=== PATIENT | female | born 1990 | race Caucasian/White ===

== ENCOUNTER 2016-07-01 15:00 | Outpatient (CLI) | payer MEDICAID ==
[2016-07-01] MEDS ORDERED: LACTATED RINGERS 500 ML IV ONE (15:25)
[2016-07-01] MEDS ORDERED: LACTATED RINGERS 1,000 ML ONE (18:28)
[2016-07-01 19:11] VITALS: BP 107/58
[2016-07-01] MEDS ORDERED: BRETHINE IVP ONE (19:35)
[2016-07-01] MEDS ORDERED: BRETHINE SUB-Q ONE (19:45)
--- NOTE | 2016-07-02 08:05 | Ultrasound Report ---
LIMITED OB ULTRASOUND: Gestation: rojas Position: transverse, head to maternal right MACKENZIE = 14.6 cm Heart Rate: 121 BPM Cervical length: 4.0 cm (Normal > 3 cm) Estimated gestational age is 33 weeks one day.
== END 2016-07-01 20:34 | disposition home or self-care (01) ==
LOC: TRG 15:00
PROVIDERS: ATTEND Obstetrics & Gynecology
DX: O32.2XX0 Maternal care for transverse and oblique lie, not applicable or unspecified (principal); O47.03 False labor before 37 completed weeks of gestation, third trimester; Z3A.34 34 weeks gestation of pregnancy
CPT/HCPCS: 59025; 76815; 96360; 96361; 96372; J3105; J7120

== ENCOUNTER 2020-10-05 13:17 | Inpatient (IN) | payer BC, MEDICAID ==
[2020-10-05] MEDS ORDERED: METHYLERGONOVINE MALEATE 0.2 MG/ML VIAL IM PRN (13:34)
[2020-10-05] MEDS ORDERED: BUTORPHANOL 2 MG/1 ML INJ IV PRN (13:34)
[2020-10-05] MEDS ORDERED: LIDOCAINE (2%) 20 MG/1 ML VIAL 20 ML MDV INFILTRATI ONE (13:34)
[2020-10-05] MEDS ORDERED: ACETAMINOPHEN 325 MG TAB PO PRN ×2 (13:34→17:00)
[2020-10-05] MEDS ORDERED: fentaNYL 100 MCG/2 ML INJ IV PRN (13:34)
[2020-10-05] MEDS ORDERED: miSOPROStol 200 MCG TAB PR PRN (13:34)
[2020-10-05] MEDS ORDERED: CARBOPROST TROMETHAMINE 250 MCG/1 ML INJ IM PRN (13:34)
[2020-10-05] MEDS ORDERED: OXYTOCIN 10 UNIT/1 ML INJ IM PRN (13:34)
[2020-10-05] MEDS ORDERED: ePHEDrine SULFATE 50 MG/1 ML INJ IV PRN ×2 (13:34→15:00)
[2020-10-05] MEDS ORDERED: MINERAL OIL 30 ML ORAL LIQD PO PRN (13:34)
[2020-10-05] MEDS ORDERED: LOPERAMIDE 2 MG CAP PO PRN (13:34)
[2020-10-05] MEDS ORDERED: TERBUTALINE 1 MG/1 ML INJ SUB-Q PRN (13:34)
[2020-10-05] MEDS: LACTATED RINGERS 1,000 ML IV SCH ×2 (13:49→14:30)
--- NOTE | 2020-10-05 13:53 | History and Physical Report ---
History of Present Illness Date of examination: 10/05/20 Date of admission: 10/05/2020 Chief complaint: Contractions History of present illness: 30 year old presents to L&D with regular contractions and advanced cervical dilation. Patient received care at [facility] and records are available. EDC . significant for late care and LGA. labs are as follows: O+, antibody screen negative, hepatitis B surface antigen negative, hepatitis C antibody negative, HIV negative, RPR nonreactive, rubella immune, varicella immune, GBS negative, 1 hour sugar test 155 (normal 3 hour OGTT), trichomonas negative, unable to locate GC/CT result on patient's records. 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 denies: smoking, alcohol abuse, prescription drug abuse, IV drug use - Obstetrical History Expected Date of Delivery: 10/07/20 Actual Gestation: 39 Week(s) 5 Day(s) : 5 Para: 4 Hx # Term Pregnancies: 4 Number of Pregnancies: 0 Spontaneous Abortions: 0 Induced : 0 Number of Living Children: 4 Medications and Allergies Allergies Allergy/AdvReac Type Severity Reaction Status Date / Time No Known Allergies Allergy Unverified 07/07/18 10:26 Home Medications Medication Instructions Recorded Confirmed Last Taken Type Ferrous Sulfate [Feosol 325 MG tab] 325 mg PO BID #60 tablet 07/08/18 Unknown Rx Active Meds: Active Medications Acetaminophen (Acetaminophen 325 Mg Tab) 650 mg PO Q4H PRN PRN Reason: Pain, Mild (1-3) Butorphanol Tartrate (Butorphanol 2 Mg/1 Ml Inj) 1 mg IV Q2H PRN PRN Reason: Pain, Moderate(4-6) LABOR PAIN Carboprost Tromethamine (Carboprost Tromethamine 250 Mcg/1 Ml Inj) 250 mcg IM ONCE PRN PRN Reason: Uterine Bleeding Ephedrine Sulfate (Ephedrine Sulfate 50 Mg/1 Ml Inj) 10 mg IV Q2M PRN PRN Reason: Hypotension Fentanyl (Fentanyl 100 Mcg/2 Ml Inj) 100 mcg IV Q2H PRN PRN Reason: Pain,Severe (7-10) LABOR PAIN Oxytocin/Sodium Chloride (Pitocin/Ns 30 Unit/500ml) 30 units in 500 mls @ 2 mls/hr IV TITR JESSICA; Protocol Lactated Ringer's (Lactated Ringers) 1,000 mls @ 125 mls/hr IV DIRECT JESSICA Last Admin: 10/05/20 13:49 Dose: 125 mls/hr Documented by: Oxytocin/Sodium Chloride (Pitocin/Ns 30 Unit/500ml) 30 units in 500 mls @ 40 mls/hr IV TITR JESSICA; Protocol Ampicillin Sodium (Ampicillin/Ns 2 Gm/100 Ml) 2 gm in 100 mls @ 100 mls/hr IV ONCE ONE; Protocol Stop: 10/05/20 14:59 Loperamide HCl (Loperamide 2 Mg Cap) 2 mg PO ONCE PRN PRN Reason: give with Hemabate Methylergonovine Maleate (Methylergonovine Maleate 0.2 Mg/Ml Vial) 0.2 mg IM ONCE PRN PRN Reason: Uterine Bleeding Mineral Oil (Mineral Oil 30 Ml Oral Liqd) 30 ml PO QHS PRN PRN Reason: Constipation Misoprostol (Misoprostol 200 Mcg Tab) 800 mcg MA ONCE PRN PRN Reason: Uterine Bleeding Oxytocin (Oxytocin 10 Unit/1 Ml Inj) 10 unit IM ONCE PRN PRN Reason: Uterine Bleeding Terbutaline Sulfate (Terbutaline 1 Mg/1 Ml Inj) 0.25 mg SUB-Q ONCE PRN PRN Reason: Hyperstimulation/Hypertonicity Review of Systems All systems: negative (contractions) - Vital Signs Vital signs: Vital Signs Pulse Ox 93 10/05/20 13:42 Temp Pulse Resp BP Pulse Ox 76 128/72 98 10/05/20 13:47 10/05/20 13:43 10/05/20 13:47 - Physical Exam Abdomen: Positive: normal appearance, soft. Negative: distention, tenderness, guarding, rigidity Genitourinary (Female): Positive: normal external genitalia, normal perenium. Negative: perineal/vulvar lesions Vagina: Positive: normal moisture Uterus: Positive: enlarged. Negative: tender Anus/Rectum: Positive: normal perianal skin Extremities: Negative: tenderness - Obstetrical FHR: category 1 Uterine Contraction Monitor Mode: External Cervical Dilatation: 8 Cervical Effacement Percentage: 90 (BBOW) station: -1 Uterine Contraction Pattern: Regular Uterine Contraction Intensity: Moderate Results All other labs normal. Assessment and Plan A: at 39 weeks, 5 days gestation. Active labor. GBS negative. P: Admit. EFM. Anticipate vaginal . Request remaineder of records from [place].
[2020-10-05 13:57] LABS: Hematocrit 37.2 % (30.3-42.9); Hemoglobin 12.8 gm/dl (10.1-14.3); Mean Corpuscular HGB Conc 34 % (30-34); Mean Corpuscular Volume 81 fl (79-97); Platelet Count 223 K/mm3 (140-440); Red Blood Count 4.62 M/mm3 (3.65-5.03)
[2020-10-05] MEDS ORDERED: AMPICILLIN/NS 2 GM/100 ML 2 GM/100 ML BAG IV ONE (14:00)
[2020-10-05] MEDS ORDERED: OXYTOCIN DRIP 30 UNITS/500 ML BAG IV SCH (14:00)
[2020-10-05 14:04] LABS: Red Cell Distribution Width 21.8 % (13.2-15.2)
--- NOTE | 2020-10-05 14:58 | Anesthesia Consultation ---
Anesthesia Consult and Med Hx Date of service: 10/05/20 - Airway Anesthetic Teeth Evaluation: Good ROM Head & Neck: Adequate Mental/Hyoid Distance: Adequate Mallampati Class: Class II Intubation Access Assessment: Good - Pulmonary Exam CTA: Yes - Cardiac Exam Cardiac Exam: RRR - Pre-Operative Health Status ASA Pre-Surgery Classification: ASA1 Proposed Anesthetic Plan: Epidural - Pulmonary Hx Asthma: No COPD: No Hx Pneumonia: No - Cardiovascular System Hx Hypertension: No - Central Nervous System Hx Seizures: No Hx Psychiatric Problems: No - Endocrine Hx Renal Disease: No Hx End Stage Renal Disease: No Hx Hypothyroidism: No Hx Hyperthyroidism: No - Hematic Hx Anemia: No Hx Sickle Cell Disease: No - Other Systems Hx Alcohol Use: No
[2020-10-05] MEDS ORDERED: NALOXONE 2 MG/2 ML INJ IV PRN (15:00)
--- NOTE | 2020-10-05 15:00 | Progress Note ---
Regional Anesthesia Block - Regional Anesthesia Block Start Time: 14:45 Stop Time: 14:50 Performed By:: ESTELA MEEK Procedure: Patient is requesting epidural for labor and pain. H&P, labs were reviewed. Patient IDed, H&P reviewed, all questions and concerns were answered, and consent was signed. Timeout was performed at bedside. Patient in sitting position. Sterile prep and drape was performed. 3ml of 1% lidocaine skin wheal at L[3]- L [4]. 18-gauge Tuohy epidural needle was advanced to loss of resistance with air technique cm. Negative CSF negative blood. Epidural catheter advanced to [15] centimeters. [negative] Aspiration [negative] test dose. Sterile dressing applied. Patient tolerated procedure.
[2020-10-05] MEDS ORDERED: fentaNYL-BUPIV 2 MCG/ML-0.125% 200 MCG/100 ML BAG EPIDURAL SCH (15:06)
[2020-10-05] MEDS: OXYTOCIN DRIP 30 UNITS/500 ML BAG IV SCH ×2 (15:39→16:16)
--- NOTE | 2020-10-05 16:35 | Procedure Note ---
OB Delivery Note - Delivery Date of Delivery: 10/05/20 - Vaginal Delivery presentation: vertex Delivery position: OA Intrapartum events: hemorrhage, shoulder dystocia Delivery induction: none Delivery monitor: external FHT, external uterine Route of delivery: Delivery placenta: spontaneous Delivery cord: 3 umbilical vessels Episiotomy: none Delivery laceration: 1st degree Delivery repair: vicryl Anesthesia: epidural Delivery comments: Spontaneous vaginal delivery at 15:45 of liveborn female infant weighing 3.45 kg over first degree perineal laceration with apgars of 8/9. No nuchal cord. Right anterior shoulder dystocia resolved with McRobert's maneuver, delivery of posterior arm, rotation of baby, and delivery of anterior arm. Head to body interval 1 minute. Baby placed skin to skin with mom immediately after delivery. Spontaneous cry and respirations. Baby suctioned with bulb syringe, dried with warm towels, and stimulated. 3 vessel cord double clamped and cut (delayed cord clamping) and baby taken to radiant warmer for further suctioning and evaluation. Spontaneous delivery of intact placenta and membranes by montgomery mechanism at 15:54. Uterine atony and hemorrhage noted. Pitocin to IV fluids after delivery of placenta. Cytotec 800 mcg given rectally. IM Methergine and Hemabate given. Bimanual uterine massage performed. Straight cath done to empty bladder. Fundus firmed and bleeding slowed to normal. EBL 500 cc. Stat H&H and pelvic US to check for placental fragments or accessory lobe ordered. Small superficial first degree perineal laceration repaired with 3-0 vicryl. No other lacerations noted. Sponge count correct. Vaginal sweep negative. Mother and baby stable in birthing room.
[2020-10-05] MEDS ORDERED: WITCH HAZEL/ GLYCERIN PAD TP PRN (17:00)
[2020-10-05] MEDS ORDERED: LANOLIN/ZINC/DIMETHICONE (LANSINOH) 7 GM TP PRN (17:00)
[2020-10-05] MEDS ORDERED: HYDROcodone/ACETAMINOPHEN 5-325 MG TAB PO PRN (17:00)
[2020-10-05] MEDS ORDERED: HYDROCORTISONE 25 MG RECTAL SUPP PR PRN (17:00)
[2020-10-05] MEDS ORDERED: ONDANSETRON 4 MG/2 ML INJ IV PRN (17:00)
[2020-10-05] MEDS: IBUPROFEN 600 MG TAB PO SCH ×2 (18:38→23:10)
--- NOTE | 2020-10-05 18:48 | Ultrasound Report ---
ULTRASOUND PELVIS INDICATION / CLINICAL INFORMATION: Check for retained placenta. TECHNIQUE: Transabdominal. Duplex Color Doppler used: Yes. COMPARISON: None available FINDINGS: UTERUS: Uterus measures 20.4 x 12.0 x 13 cm. Uterus is heterogeneous. Endometrial stripe measures 1.2 cm. No significant endometrial fluid. No increased vascularity seen. RIGHT ADNEXA: Not visualized LEFT ADNEXA: Not visualized URINARY BLADDER: No significant abnormality. FREE FLUID: None. ADDITIONAL FINDINGS: None. IMPRESSION: Enlarged uterus. Endometrial stripe is mildly thickened, measuring 1.2 cm, without signifi cant endometrial fluid, mass, or abnormal vascularity to suggest retained products of conception. Con tinued clinical follow-up is recommended. Signer Name: Abdi Sarmiento MD Signed: 10/05/2020 6:44 PM Workstation Name: [id number]
[2020-10-05] MEDS ORDERED: MAGNESIUM HYDROXIDE (MOM) ORAL LIQD UDC PO PRN (22:00)
[2020-10-05 22:21] LABS: Alanine Aminotransferase 9 units/L (7-56); BUN/Creatinine Ratio 20; Blood Urea Nitrogen 10 mg/dL (7-17); Calcium 8.8 mg/dL (8.4-10.2); Hemolysis Index 8; Uric Acid 4.7 mg/dL (3.5-7.6)
[2020-10-05] MEDS: DOCUSATE SODIUM 100 MG CAP PO SCH (23:10)
[2020-10-05] MEDS: FERROUS SULFATE 325 MG TAB PO SCH (23:10)
[2020-10-06 00:30] LABS: Bilirubin,Urine NEG (Negative); Blood,Urine LG (Negative); Color,Urine Red (Yellow); Urobilinogen,Urine < 2.0 mg/dL (<2.0)
[2020-10-06 00:33] LABS: RBC,Urine > 182.0 /HPF (0.0-6.0)
[2020-10-06] MEDS: IBUPROFEN 600 MG TAB PO SCH ×4 (05:39→23:35)
[2020-10-06] MEDS ORDERED: POTASSIUM CHLORIDE ER 10 MEQ TAB PO ONE ×2 (05:42→07:00)
[2020-10-06 05:58] LABS: Hematocrit 30.5 % (30.3-42.9); Hemoglobin 10.4 gm/dl (10.1-14.3)
--- NOTE | 2020-10-06 09:55 | Progress Note ---
Assessment and Plan stable continue routine PP care Kerwin Ames MD Subjective - Subjective Date of service: 10/06/20 Interval history: PPD#1 doing well continue routine PP Care plan fro d/c to home tomorrow Kerwin Amse MD Patient reports: appetite normal, voiding normally, pain well controlled, ambulating normally : doing well Objective - Vital Signs Latest vital signs: Vital Signs Temp Pulse Resp BP BP Pulse Ox Pulse Ox 10/06/20 05:39 18 10/06/20 04:45 97.8 F 75 18 126/81 96 10/06/20 00:59 98.1 F 75 18 120/69 97 10/05/20 23:10 18 10/05/20 21:39 98.0 F 90 16 112/66 97 10/05/20 20:20 97 10/05/20 18:39 97 10/05/20 18:05 97.9 F 64 18 142/83 97 10/05/20 17:00 60 140/90 10/05/20 16:57 63 96 10/05/20 16:56 69 94 10/05/20 16:52 64 97 10/05/20 16:47 57 L 97 10/05/20 16:45 54 L 94 10/05/20 16:44 52 L 130/66 10/05/20 16:42 55 L 97 10/05/20 16:37 63 98 10/05/20 16:32 59 L 98 10/05/20 16:29 53 L 130/67 10/05/20 16:27 68 98 10/05/20 16:22 75 98 10/05/20 16:20 97.7 F 10/05/20 16:17 64 99 10/05/20 16:16 66 123/59 10/05/20 16:12 74 100 10/05/20 16:10 82 93 10/05/20 16:07 68 99 10/05/20 16:02 82 98 10/05/20 15:57 84 99 10/05/20 15:52 74 97 10/05/20 15:47 72 98 10/05/20 15:45 85 132/97 10/05/20 15:42 63 99 10/05/20 15:37 80 99 10/05/20 15:32 66 98 10/05/20 15:30 70 135/94 10/05/20 15:27 75 98 10/05/20 15:22 76 98 10/05/20 15:17 70 99 10/05/20 15:14 75 131/63 10/05/20 15:12 87 97 10/05/20 15:07 79 97 10/05/20 15:02 77 99 10/05/20 14:59 88 122/60 10/05/20 14:57 75 98 10/05/20 14:54 99 F 10/05/20 14:53 71 149/65 10/05/20 14:52 79 99 10/05/20 14:49 81 139/73 10/05/20 14:47 84 99 10/05/20 14:46 85 137/63 10/05/20 14:42 91 H 99 10/05/20 14:37 81 99 10/05/20 14:32 77 99 10/05/20 14:27 89 100 10/05/20 14:22 82 100 10/05/20 14:20 81 20 128/72 100 10/05/20 14:17 93 H 99 10/05/20 14:12 83 99 10/05/20 14:07 73 97 10/05/20 14:02 80 97 10/05/20 13:57 79 96 10/05/20 13:52 82 99 10/05/20 13:47 76 98 10/05/20 13:43 75 128/72 93 10/05/20 13:42 93 Intake and Output 10/05/20 10/06/20 10/06/20 23:59 07:59 15:59 Intake Total 264.667 360 Output Total 700 300 Balance -435.333 60 Intake: IV 24.667 PITOCin/NS 30 UNIT/500ML 24.667 30 units In 500 ml @ 40 mls/hr IV TITR JESSICA Rx#: [id number] Oral 240 240 Intake, Free Water 120 Output: Urine 700 300 Void 700 300 Other: Total, Intake Amount 240 240 Total, Output Amount 400 300 # Voids Void 1 1 - Exam Breasts: Present: deferred Cardiovascular: Present: Regular rate Lungs: Present: Clear to auscultation Abdomen: Present: normal appearance, soft, normal bowel sounds Vulva: both: normal Uterus: Present: fundal height below umbilicus Extremities: Present: normal Deep Tendon Reflex Grade: Normal but brisk +3 - Labs Labs: Abnormal lab results 10/05/20 10/05/20 10/05/20 Range/Units 13:39 21:46 23:45 RDW 21.8 H (13.2-15.2) % Sodium 136 L (137-145) mmol/L Potassium 3.3 L (3.6-5.0) mmol/L Carbon Dioxide 17 L (22-30) mmol/L Creatinine 0.5 L (0.6-1.2) mg/dL Glucose 122 H (65-100) mg/dL Alkaline Phosphatase 230 H (35-129) units/L Lactate Dehydrogenase 203 H (91-180) units/L Total Protein 5.6 L (6.3-8.2) g/dL Albumin 3.0 L (3.9-5) g/dL Urine WBC (Auto) 12.0 H (0.0-6.0) /HPF
--- NOTE | 2020-10-06 09:56 | Discharge Summary ---
Providers - Providers Date of Admission: 10/05/20 13:18 Attending physician: BEN NEUMANN MD Primary care physician: BEN NEUMANN MD Hospitalization Delivery: Laceration: 1st degree Other procedures: none complications: none Discharge diagnosis: IUP at term delivered Condition at discharge: Stable Disposition: 01 HOME / SELF CARE / HOMELESS Plan - Provider Discharge Summary Activity: no sex for 6 weeks Diet: routine Instructions: routine Additional instructions: [] Smoking cessation referral if applicable(refer to patient education folder for contact #) [] Refer to [facility]'s [facility] Booklet Call your doctor immediately for: * Fever > 100.5 * Heavy vaginal bleeding ( >1 pad per hour) * Severe persistent headache * Shortness of breath * Reddened, hot, painful area to leg or breast * Drainage or odor from incision. * Keep incision clean and dry at all times and follow doctor's instructions regarding bathing/showering - Follow up plan Follow up: BEN NEUMANN MD [Primary Care Provider] - 6 Weeks
[2020-10-06] MEDS: FERROUS SULFATE 325 MG TAB PO SCH ×2 (11:20→23:35)
[2020-10-06] MEDS: DOCUSATE SODIUM 100 MG CAP PO SCH ×2 (11:27→23:35)
--- NOTE | 2020-10-06 12:17 | Post Anesthesia Evaluation ---
- Post Anesthesia Evaluation Patient Participated: Yes Airway Patent: Yes Stable Respiratory Function: Yes Nausea/Vomiting: No Temp > 96.8F: Yes Pain Manageable: Yes Adequeate Hydration: Yes Anesthesia Complications: No Block Receding Appropriately: Yes Patient on Ventilator: No
[2020-10-07] MEDS: IBUPROFEN 600 MG TAB PO SCH ×2 (06:30→14:15)
[2020-10-07] MEDS: DOCUSATE SODIUM 100 MG CAP PO SCH (10:46)
[2020-10-07] MEDS: FERROUS SULFATE 325 MG TAB PO SCH (10:46)
[2020-10-07 17:29] VITALS: BP 120/85
== END 2020-10-07 15:56 | disposition home or self-care (01) | DRG 806 ==
LOC: TRG 13:17 → LD 13:18 → APU 13:18 → LD 13:38 → TRG 13:54 → OB 17:21
PROVIDERS: ADMIT Obstetrics & Gynecology; ATTEND Obstetrics & Gynecology
PROC: 0HQ9XZZ Repair Perineum Skin, External Approach (ICD-10-PCS; principal; 2020-10-05)
PROC: 10E0XZZ Delivery of Products of Conception, External Approach (ICD-10-PCS; 2020-10-05)
PROC: 3E0R3BZ Introduction of Anesthetic Agent into Spinal Canal, Percutaneous Approach (ICD-10-PCS; 2020-10-05)
PROC: 00HU33Z Insertion of Infusion Device into Spinal Canal, Percutaneous Approach (ICD-10-PCS; 2020-10-05)
DX: O66.0 Obstructed labor due to shoulder dystocia (principal); O72.1 Other immediate postpartum hemorrhage; Z37.0 Single live birth; Z20.822 Contact with and (suspected) exposure to COVID-19; O70.0 First degree perineal laceration during delivery; Z83.3 Family history of diabetes mellitus; Z3A.39 39 weeks gestation of pregnancy; Z82.49 Family history of ischemic heart disease and other diseases of the circulatory system; Z82.3 Family history of stroke; Z80.9 Family history of malignant neoplasm, unspecified; Z82.62 Family history of osteoporosis
CPT/HCPCS: 36415; 76857; 80053; 81001; 83615; 84550; 85014; 85018; 85027; 86592; 86850; 86900; 86901; 87086; 88307; G0378; J2210; J2590; J7120; U0003